=== PATIENT | female | born 1935 | race Caucasian/White ===

== ENCOUNTER → 2017-10-17 | Outpatient (CLI) | payer MEDICARE ==
--- NOTE | 2017-10-17 16:51 | BD ---
EXAMINATION TYPE: Axial Bone Density DATE OF EXAM: 10/17/2017 COMPARISON: NONE CLINICAL HISTORY: 82-year-old female screening for osteoporosis Height: 5 FT Weight: 110 FRAX RISK QUESTIONS: RISK FACTORS Active: YES Postmenopausal woman: AGE 53 Take estrogen and/or progesterone medications: TOOK HRT FROM AGE [age] How long: NONE NOW Lost more than 2 inches in height since high school: YES MEDICATIONS: Additional Medications: ATENOLOL, Additional History: EXAM MEASUREMENTS: Bone mineral densitometry was performed using the [employer] System. Bone mineral density as measured about the Lumbar spine is: ----- L1-L4(G/cm2): 1.133 T Score Values are as follows: ----- L2: -1.1 ----- L3: 0.5 ----- L4: 0.0 ----- L1-L4: -0.4 Bone mineral density has: DECREASED -3.3 % since study of: 2015 Bone mineral density about the R hip (g/cm2): 0.705 Bone mineral density about the L hip (g/cm2): 0.714 T Score values are as follows: -----R Neck: -2.4 -----L Neck: -2.3 -----R Total: -1.9 -----L Total: -1.9 Bone mineral density has: DECREASED -5.8 % since study of: 2015 IMPRESSION: Osteopenia (T Score between -2.5 and -1). There is slightly increased risk of fracture and the patient may be considered for treatment. Re-Screen 2-5 years. NOTE: T-SCORE=SD OF THE YOUNG ADULT MEAN.
--- NOTE | 2017-10-18 13:53 | MM ---
Reason for exam: screening (asymptomatic). Last mammogram was performed 2 years ago. History: Patient is postmenopausal and is nulliparous. Family history of breast cancer in paternal aunt at age 70. Took estrogen for 24 years beginning at age 53. Took progesterone for 24 years beginning at age 53. Physical Findings: A clinical breast exam by your physician is recommended on an annual basis and results should be correlated with mammographic findings. MG 3D Screening Mammo W/Cad Bilateral CC and MLO view(s) were taken. Prior study comparison: October 07, 2015, bilateral MG 3d screening mammo w/cad. February 08, 2014, bilateral MG screening mammo w CAD. The breast tissue is heterogeneously dense. This may lower the sensitivity of mammography. There is no discrete abnormality. No significant changes when compared with prior studies. ASSESSMENT: Negative, BI-RAD 1 RECOMMENDATION: Routine screening mammogram of both breasts in 1 year.
== END | disposition home or self-care (01) ==
LOC: RADMAMWWP 08:48
PROVIDERS: ATTEND Internal Medicine
DX: Z12.31 Encounter for screening mammogram for malignant neoplasm of breast (principal); M85.80 Other specified disorders of bone density and structure, unspecified site
CPT/HCPCS: 77063; 77067; 77080

== ENCOUNTER 2019-10-28 07:32 | Emergency (ER) | payer MEDICARE ==
[2019-10-28 07:41] VITALS: BP 175/91; PULSE 70; RESP 18; TEMP 98.6
[2019-10-28] MEDS ORDERED: LIDOCAINE 1% INJ 10MG/ML (20 ML MDV) SQ ONE (07:54)
[2019-10-28] MEDS ORDERED: DIPH,PERTUS(ACELL)TETVAC-LF 0.5 ML VIAL IM ONE (07:54)
--- NOTE | 2019-10-28 07:54 | ED ---
General Adult HPI - General Chief complaint: Head Injury Stated complaint: Fall Time Seen by Provider: 10/28/19 07:35 Source: patient, RN notes reviewed, old records reviewed Mode of arrival: wheelchair Limitations: physical limitation - History of Present Illness Initial comments: This is an 84-year-old female who presents emergency Department with a l aceration to the side of her face on the left. Patient states last night about 1:00 morning she opened the door blue she herself in the head she did not lose consciousness. Patient states she has no bony tenderness. Patient denies any headache. Patient denies neck pain. Patient states she didn't even fall per patient states it bled quite heavily but she put a towel on it and put a towel over pills of the patella but did not seek and when she woke up this morning she noted that it was quite large so she decided come to the emergency department. Patient currently has no complaint of that she has a laceration on her head. Patient states she's not up-to-date on her tetanus. Patient denies any other injury. Patient states she was not intoxicated at this time. - Related Data Allergies Allergy/AdvReac Type Severity Reaction Status Date / Time Sulfa (Sulfonamide Allergy Unknown Verified 10/28/19 07:41 Antibiotics) Review of Systems ROS Statement: Those systems with pertinent positive or pertinent negative responses have been documented in the HPI. ROS Other: All systems not noted in ROS Statement are negative. Past Medical History Past Medical History: Hypertension Additional Past Medical History / Comment(s): cataracts History of Any Multi-Drug Resistant Organisms: None Reported Past Surgical History: No Surgical Hx Reported Past Psychological History: No Psychological Hx Reported Smoking Status: Never smoker Past Alcohol Use History: Occasional Past Drug Use History: None Reported General Exam - General Exam Comments Initial Comments: GENERAL Patient is well-developed and well-nourished. Patient is in mild distress. EYES Patient's pupils are equal and round. Extraocular motion is intact SKIN Patient has a 3 and half centimeter laceration to the left side of her face just just above the eye and lateral to the forehead. NEURO The patient is alert and oriented 3 PYSCH Patient has normal interpersonal interactions. MUSCULOSKELETAL All 4 times and full range of motion Limitations: physical limitation Course Vital Signs 10/28/19 07:36 Temperature 98.6 F Pulse Rate 70 Respiratory 18 Rate Blood Pressure 175/91 O2 Sat by Pulse 96 Oximetry Procedures - Laceration Laceration #1 Consent Obtained: verbal consent Indication: laceration Site: face Description: linear Anesthetic Used: lidocaine 1% Anesthesia Technique: local infiltration Pre-repair: wound explored Size of Sutures: 5-0 Number of Sutures: 7 Technique: simple, interrupted Complications: pain, bleeding Patient Tolerated Procedure: well Disposition Clinical Impression: Facial laceration Disposition: HOME SELF-CARE Condition: Good Instructions (If sedation given, give patient instructions): Laceration (ED) Additional Instructions: Patient should have sutures removed in 5 days. Is patient prescribed a controlled substance at d/c from ED?: No Referrals: Olayinka Herrmann MD [Primary Care Provider] - 1-2 days Time of Disposition: 08:18
== END 2019-10-28 08:27 | disposition home or self-care (01) ==
LOC: EC 07:32
DX: S01.81XA Laceration without foreign body of other part of head, initial encounter (principal); Z88.2 Allergy status to sulfonamides; Z23 Encounter for immunization; W22.8XXA Striking against or struck by other objects, initial encounter
CPT/HCPCS: 90471; 99283; 12013; 90715; J2001

== ENCOUNTER → 2020-08-06 | Outpatient (CLI) | payer MEDICARE ==
--- NOTE | 2020-08-06 10:00 | US ---
EXAMINATION TYPE: US thyroid st tissue head/neck DATE OF EXAM: 08/06/2020 COMPARISON: NONE CLINICAL HISTORY: E03.9 Hypothyroidism. weight loss GLAND SIZE: Right Lobe: 4.1 x 1.5 x 1.5 cm Overall Parenchyma: heterogenous Left Lobe: 4.0 x 1.3 x 1.2 cm Overall Parenchyma: heterogeneous Isthmus Thickness: 0.3 cm NODULES RIGHT: # of nodules measured on right: 1 1. 0.7 X 0.5 x 0.3 cm, lower mid, solid or almost completely solid, isoechoic nodule, which is wide r than tall, with ill-defined margins, without echogenic foci. Very Subtle Prior size: No previous LEFT: # of nodules measured on left: 1 1. 0.4 X 0.4 x 0.3 cm, upper mid, cystic or almost completely cystic, anechoic nodule, which is gage ler than wide, with smooth margins, without echogenic foci. Prior size: No previous ISTHMUS: # of nodules measured in the isthmus: 0 Bilateral neck scanned, no evidence of lymphadenopathy. IMPRESSION: Subcentimeter nodularity is nonspecific. 2017 ACR TI-RADS LEVEL: *Highest TI-RADS level nodule reported
--- NOTE | 2020-08-08 04:28 | NM ---
EXAMINATION TYPE: NM thyroid image w uptake DATE OF EXAM: 08/07/2020 COMPARISON: NONE HISTORY: Hypothyroidism TECHNIQUE: Thyroid iodine uptake is calculated and images performed after the oral administration of 306 uCi 1-123 Capsule. FINDINGS: There is normal distribution of activity throughout the gland. The 4 hour iodine uptake is calculated at 20.6% (normal range 8-14%). The 24-hour iodine uptake is calculated at 49.8% (normal r joanne 15-35%). The images show uniform activity wo of focal thyroid abnormality. IMPRESSION: There is increased uptake suggestive of hyperthyroidism. No focal thyroid mass.
== END | disposition home or self-care (01) ==
LOC: RADUSWWP 09:06
PROVIDERS: ATTEND Internal Medicine
DX: E03.9 Hypothyroidism, unspecified (principal)
CPT/HCPCS: 76536; 78014; A9516

== ENCOUNTER → 2021-07-20 | Outpatient (CLI) | payer MEDICARE ==
--- NOTE | 2021-07-20 15:57 | BD ---
EXAMINATION TYPE: Bone Density DATE OF EXAM: 07/20/2021 COMPARISON: 10/17/2017 CLINICAL HISTORY: 85 years year old Female. ICD-10 CODE: M81.0 age-related osteroposis without curre nt path fx Height: 59.5 IN Weight: 104 LBS FRAX RISK QUESTIONS: Secondary Osteoporosis: 2. Hyperthyroidism: YES 3. Menopause before 45: AGE 30 RISK FACTORS HISTORY OF: Active: YES Postmenopausal woman: AGE 30 Take estrogen and/or progesterone medications: NOT NOW How long: TOOK FOR 7 YEARS MEDICATIONS: Additional Medications: HIGH BLOOD PRESSURE MEDS, CHOLESTEROL MEDS EXAM MEASUREMENTS: Bone mineral densitometry was performed using the [employer] System. Bone mineral density as measured about the Lumbar spine is: ----- L1-L4(G/cm2): 1.088 T Score Values are as follows: ----- L1: -1.7 ----- L2: -1.3 ----- L3: 0.1 ----- L4: -0.5 ----- L1-L4: -0.8 Bone mineral density has: Decreased -3.9% since study of: 10/17/2017 Bone mineral density about the R hip (g/cm2): 0.673 Bone mineral density about the L hip (g/cm2): 0.646 T Score values are as follows: -----R Neck: -2.6 -----L Neck: -2.8 -----R Total: -2.2 -----L Total: -2.5 Bone mineral density has: Decreased -7.5% since study of: 10/17/2017 FRAX%s: The graph provided illustrates a 18.2 chance for a major osteoporotic fx and a 7.4 chance for the hips probability for fx in 10 years time. IMPRESSION: Osteoporosis (T Score less than -2.5). There is increased fracture risk and therapy is usually indicated based on age. Re-Screen 1-2 years. NOTE: T-SCORE=SD OF THE YOUNG ADULT MEAN.
--- NOTE | 2021-07-21 15:05 | MM ---
Reason for exam: screening (asymptomatic). Last mammogram was performed 3 years and 9 months ago. History: Patient is postmenopausal and is nulliparous. Family history of breast cancer in paternal aunt at age 70. Took estrogen for 24 years beginning at age 53. Took progesterone for 24 years beginning at age 53. Physical Findings: A clinical breast exam by your physician is recommended on an annual basis and results should be correlated with mammographic findings. MG 3D Screening Mammo W/Cad Bilateral CC, MLO, and XCCL view(s) were taken. Prior study comparison: October 17, 2017, bilateral MG 3d screening mammo w/cad. October 07, 2015, bilateral MG 3d screening mammo w/cad. The breast tissue is extremely dense which could obscure a lesion on mammography. There are benign appearing vascular calcifications bilaterally. Focal asymmetry 10mm middle posterior depth left medial aspect on CC view only. ASSESSMENT: Incomplete: need additional imaging evaluation, BI-RAD 0 RECOMMENDATION: Special view mammogram and ultrasound of the left breast. [facility] will attempt to contact patient to return for supplemental views and ultrasound.
== END | disposition home or self-care (01) ==
LOC: RADMAMWWP 12:33
PROVIDERS: ATTEND Internal Medicine
DX: Z12.31 Encounter for screening mammogram for malignant neoplasm of breast (principal); M81.0 Age-related osteoporosis without current pathological fracture; Z78.0 Asymptomatic menopausal state; Z80.3 Family history of malignant neoplasm of breast
CPT/HCPCS: 77063; 77067; 77080

== ENCOUNTER → 2021-09-30 | Outpatient (CLI) | payer MEDICARE ==
[~2021-09-30] MED LIST: SODIUM CHLORIDE 0.9% 500 ML 500 ML in EMPTY BAG 1 BAG IV PRN; ZOLEDRONIC ACID 5 MG in SODIUM CHLORIDE 0.9% 100 ML IV NR
[2021-09-30 11:17] VITALS: PULSE 58; RESP 16; TEMP 97.6
[2021-09-30 11:47] VITALS: BP 199/71
== END ==
LOC: PROCWHC3 10:51
PROVIDERS: ATTEND Internal Medicine
DX: M81.0 Age-related osteoporosis without current pathological fracture (principal); Z88.2 Allergy status to sulfonamides
CPT/HCPCS: 96365; J3489

== ENCOUNTER → 2022-09-16 | Outpatient (CLI) | payer MEDICARE ==
[2022-09-16 10:44] LABS: African American GFR (CKD) 72 (>60 ml/min/1.73 sqM); Blood Urea Nitrogen 22 mg/dL (7-17); Non-African American GFR(CKD) 62 (>60 ml/min/1.73 sqM)
--- NOTE | 2022-09-16 11:53 | CT ---
EXAMINATION TYPE: CT angio chest DATE OF EXAM: 09/16/2022 11:37 AM COMPARISON: None HISTORY: Ascending aortic aneurysm. CT DLP: 268 mGycm Automated exposure control for dose reduction was used. CONTRAST: CTA scan of the thorax is performed without and with IV Contrast, patient injected with 100ml mL of I sovue 370, pulmonary embolism protocol. . FINDINGS: LUNGS: The lungs are grossly clear, there is no concerning parenchymal mass or nodule identified. T here is no pleural effusion or pneumothorax seen. The tracheobronchial tree is patent. Linear 3 mm d ensity right lung apex likely is benign. Additional 2 mm subpleural nodule image 20 left upper lobe a nteriorly. Mild centrilobular emphysematous changes. Subsegmental changes involving both lung bases m ost basilar atelectasis or scarring. Very mild basilar bronchiectasis. MEDIASTINUM: There is satisfactory enhancement of the pulmonary artery and its branches, there is no CT evidence for pulmonary embolism. There are no greater than 1 cm hilar or mediastinal lymph nodes. The heart is enlarged and there is a trace of pericardial fluid. The calcification in the region of the aortic valve is seen there is no significant coronary artery calcification. AORTA: Ascending aorta demonstrates mild aneurysmal dilation measuring 4.1 x 4.1 cm. There is mild atheroscl erotic plaque. There is no diagnostic evidence of dissection. There is an aberrant right subclavian artery. OTHER: Multilevel severe hypertrophic and degenerative disc disease with scoliosis. Small hiatal her nany. IMPRESSION: 1. There is a 4.1 x 4.1 cm ascending aortic aneurysm. 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 This can be associated with a vascular ring and dysphasia. Correla te clinically. 2. Sub-5 mm pulmonary nodules too small to characterize but have a benign appearance. No additional w orkup recommended.
== END | disposition home or self-care (01) ==
LOC: RADCTMAIN 10:05
PROVIDERS: ATTEND Internal Medicine
DX: I71.21 Aneurysm of the ascending aorta, without rupture (principal); Q27.8 Other specified congenital malformations of peripheral vascular system; R91.8 Other nonspecific abnormal finding of lung field
CPT/HCPCS: 82565; 84520; 71275; 36415; Q9967

== ENCOUNTER → 2022-09-21 | Outpatient (CLI) | payer MEDICARE ==
--- NOTE | 2022-09-22 08:51 | MM ---
Reason for Exam: Screening (asymptomatic). Last mammogram was performed 1 year(s) and 2 month(s) ago. Patient History: Menarche at age 12. Patient has no children. Postmenopausal. Estrogen for 24 years from age 53 until age 77. Progesterone for 24 years from age 53 until age 77. Paternal aunt had breast cancer, age 70. Prior Study Comparison: 10/07/2015 Bilateral Screening Mammogram, [facility]. 10/17/2017 Bilateral Screening Mammogram, [facility]. 07/20/2021 Bilateral Screening Mammogram, [facility]. Tissue Density: The breast tissue is heterogeneously dense. This may lower the sensitivity of mammography. Findings: Analyzed By CAD. There is no suspicious group of microcalcifications or new suspicious mass in either breast. Overall Assessment: Negative, BI-RAD 1 Management: Screening Mammogram of both breasts in [address] [facility] will attempt to contact patient to return for supplemental views and ultrasound if indicated. Patient should continue monthly self-breast exams. A clinical breast exam by your physician is recommended on an annual basis. This exam should not preclude additional follow-up of suspicious palpable abnormalities. Note on Renee scores and lifetime risk: 1. A Renee score greater than 3% is considered moderate risk. If this is the case, consider specialist referral to assess eligibility for a risk reducing agent. 2. If overall lifetime risk for the development of breast cancer is 20% or higher, the patient may qualify for future screening with alternating mammogram and breast MRI. Electronically signed and approved by: Jin Weir DO
== END | disposition home or self-care (01) ==
LOC: RADMAMWWP 09:07
PROVIDERS: ATTEND Internal Medicine
DX: Z12.31 Encounter for screening mammogram for malignant neoplasm of breast (principal); Z78.0 Asymptomatic menopausal state; Z80.3 Family history of malignant neoplasm of breast
CPT/HCPCS: 77063; 77067

== ENCOUNTER → 2024-06-04 | Outpatient (CLI) | payer MEDICARE ==
--- NOTE | 2024-06-04 15:53 | US ---
EXAMINATION TYPE: US venous doppler duplex LE BI DATE OF EXAM: 06/04/2024 3:25 PM COMPARISON: NONE CLINICAL INDICATION: Female, 88 years old with history of R600 EDEMA OF RIGHT LOWER LEG; , Pain x few weeks; Patient denies any other signs, symptoms, or relevant history TECHNIQUE: The lower extremity deep venous system is examined utilizing real time linear array sonog romie with graded compression, color doppler sonography, and spectral doppler. SIDE PERFORMED: Bilateral FINDINGS: VESSELS IMAGED: Common Femoral Vein Deep Femoral Vein Greater Saphenous Vein * Femoral Vein Popliteal Vein Small Saphenous Vein * Proximal Calf Veins (* superficial vessels) Right Leg: Negative for DVT, Color Doppler imaging shows patency of the vessels. Spectral waveforms are within normal limits. Left Leg: Negative for DVT, Color Doppler imaging shows patency of the vessels. Spectral waveforms a re within normal limits. IMPRESSION: No ultrasound evidence for deep venous thrombosis. [facility], , 06/04/2024 3:51 PM
--- NOTE | 2024-06-04 15:54 | US ---
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 TECHNIQUE: Grayscale, color Doppler and spectral Doppler evaluation of the bilateral carotid systems and vertebral arteries. Indirect Doppler criteria was utilized. FINDINGS: EXAM MEASUREMENTS: RIGHT: Peak Systolic Velocity (PSV) cm/sec ----- Right CCA: 60 ----- Right ICA: 72 ----- Right ECA: 59 ICA/CCA ratio: 1.2 RIGHT: End Diastole cm/sec ----- Right CCA: 10 ----- Right ICA: 21 ----- Right ECA: 12 LEFT: Peak Systolic Velocity (PSV) cm/sec ----- Left CCA: 58 ----- Left ICA: 55 ----- Left ECA: 37 ICA/CCA ratio: 0.9 LEFT: End Diastole cm/sec ----- Left CCA: 10 ----- Left ICA: 14 ----- Left ECA: 11 VERTEBRALS (direction of flow): Right Vertebral: Antegrade Left Vertebral: Antegrade Rhythm: Arrhythmia; Image 18 ENVIRONMENT ARTIST NOTES: No intimal thickening or elevated velocities seen, calcified plaque seen at left C CA/ECA bulb Color Doppler imaging shows patency with blood flow throughout the carotid artery. Spectral waveforms are within normal limits. IMPRESSION: Right: No hemodynamically significant stenosis. Left: No hemodynamically significant stenosis. Criteria for Assigning % of Stenosis / Diameter reduction (Estimation based on the indirect measurements of the internal carotid artery velocities (ICA PSV). 1. Normal (no stenosis)=ICA PSV < 125 cm/s: ratio < 2.0: ICA EDV<40 cm/s. 2. Less than 50% stenosis=ICA PSV < 125 cm/s: ratio < 2.0: ICA EDV<40 cm/s. 3. 50 to 69% stenosis=ICA PSV of 125 to 230 cm/s: ration 2.0 ? 4.0: ICA EDV 40-100 cm/s. 4. Greater than 70% stenosis to near occlusion= ICA PSV > 230 cm/s: ratio > 4.0: ICA EDV > 100 cm/s. 5. Near occlusion= ICA PSV velocities may be low or undetectable: variable ratio and ICA EDV. 6. Total occlusion=unable to detect flow. [facility], , 06/04/2024 3:52 PM
--- NOTE | 2024-06-04 16:52 | CA ---
Transthoracic Echo Report Name: Concepcion Chavarria Age: 88 Gender: F : 1935 Exam Date: 06/04/2024 14:20 Exam Location: [place] [facility] Ht (in): 61 Wt (lb): 110 Ordering Physician: Renetta Hayes MD Attending/Referring Phys: Renetta Hayes MD Enrollment Services Vice President Page Barnes, [facility] Procedure CPT: Indications: `I35.1 NONRHEUMATIC AORTIC VALVE INSUFFICIENCY Cardiac Hx: Technical Quality: Good Contrast 1: Total Dose (mL): Contrast 2: Total Dose (mL): MEASUREMENTS (Male / Female) Normal Values 2D ECHO LV Diastolic Diameter PLAX 4.8 cm 4.2 - 5.9 / 3.9 - 5.3 cm LV Systolic Diameter PLAX 2.8 cm IVS Diastolic Thickness 1.0 cm 0.6 - 1.0 / 0.6 - 0.9 cm LVPW Diastolic Thickness 1.0 cm 0.6 - 1.0 / 0.6 - 0.9 cm LV Relative Wall Thickness 0.4 RV Internal Dim ED PLAX 2.7 cm LA Systolic Diameter LX 3.7 cm 3.0 - 4.0 / 2.7 - 3.8 cm LV Diastolic Volume MOD 4C 84.8 cm??? LV Systolic Volume MOD 4C 43.8 cm??? LV Ejection Fraction MOD 4C 48.4 % LV Diastolic Length 4C 7.4 cm LV Systolic Length 4C 6.0 cm LV Diastolic Volume MOD 2C 96.0 cm??? LV Systolic Volume MOD 2C 47.9 cm??? LV Ejection Fraction MOD 2C 50.1 % LV Diastolic Length 2C 7.1 cm LV Systolic Length 2C 5.8 cm LA Volume 45.1 cm??? 18 - 58 / 22 - 52 cm??? LA Volume Index 30.7 cm???/m??? 16 - 28 cm???/m??? M-MODE Aortic Root Diameter MM 3.2 cm DOPPLER AV Peak Velocity 161.9 cm/s AV Peak Gradient 10.5 mmHg AI Peak Velocity 390.3 cm/s AI Peak Gradient 60.9 mmHg AI Pressure Half Time 670.5 ms MV Area PHT 2.3 cm??? Mitral E Point Velocity 90.1 cm/s Mitral A Point Velocity 126.8 cm/s Mitral E to A Ratio 0.7 MV Deceleration Time 329.9 ms TR Peak Velocity 278.1 cm/s TR Peak Gradient 30.9 mmHg Right Ventricular Systolic Press 35.2 mmHg FINDINGS Left Ventricle Left ventricular ejection fraction is estimated at 50-55 %. Mildly increased septal wall thickness. Left ventricular cavity size normal. No obvious regional wall motion abnormalities. Right Ventricle Normal right ventricular size and function. Mild pulmonary hypertension. Right Atrium Normal right atrial size. No right atrial thrombus or mass seen. Left Atrium Mildly increased left atrial volume. No left atrial thrombus or mass present. Mitral Valve Structurally normal mitral valve. No evidence for mitral valve prolapse. No mitral stenosis. Trace mitral regurgitation. Aortic Valve Trileaflet aortic valve. Thickened aortic valve without stenosis. Mild aortic regurgitation. Tricuspid Valve Structurally normal tricuspid valve. Mild tricuspid regurgitation. Pulmonic Valve Structurally normal pulmonic valve. Trace pulmonic regurgitation. Pericardium No pericardial effusion. Aorta Normal size aortic root and proximal ascending aorta. CONCLUSIONS Left ventricular ejection fraction 50-55% RVSP 35 Trace mitral regurgitation Mild aortic regurgitation Mild tricuspid regurgitation No pericardial effusion Previewed by: Dr. Robin Ye DO (Electronically Signed) Final Date: 04 June 2024 16:51
--- NOTE | 2024-06-05 08:38 | BD ---
EXAMINATION TYPE: Axial Bone Density DATE OF EXAM: 06/04/2024 CLINICAL HISTORY: 88 years old Female. ICD-10 CODE: M810 AGRE RELATED OSTEO , Additional History: Height: 60" Weight: 118lbs FRAX RISK QUESTIONS: Alcohol (3 or more units per day): No Family History (Parent hip fracture): No Glucocorticoids (More than 3mos): No (Ex: prednisone, prednisolone, methylprednisolone, dexamethasone, and hydrocortisone). History of Fracture in Adulthood: No Secondary Osteoporosis: 1. Type 1 Diabetes: No 2. Hyperthyroidism: No 3. Menopause before 45: No 4. Malnutrition: No 5. Chronic liver disease: No Rheumatoid Arthritis: No Current Tobacco Use: No RISK FACTORS HISTORY OF: Hip Fracture (Right/Left): No Spine Fracture: No History of Wrist Fracture: No Surgery to Spine/Hip(right/left)/Wrist (right/left): No MEDICATIONS: Thyroid Medications: No Osteoporosis Medications: No EXAM MEASUREMENTS: Bone mineral densitometry was performed using the [employer] System. Bone mineral density as measured about the Lumbar spine is: ----- L1-L4(G/cm2): 1.114 T Score Values are as follows: ----- L1: -1.8 ----- L2: -1.2 ----- L3: 0.3 ----- L4: 0.1 ----- L1-L4: -0.5 Z Score Values are as follows: ----- L1: 0.6 ----- L2: 1.1 ----- L3: 2.7 ----- L4: 2.4 ----- L1-L4: 1.8 Bone mineral density has: increased 2.4% since study of: 07/20/2021 Bone mineral density about the R hip (g/cm2): 0.730 Bone mineral density about the L hip (g/cm2): 0.807 T Score values are as follows: -----R Neck: -2.4 -----L Neck: -2.1 -----R Total: -2.2 -----L Total: -1.6 Z Score values are as follows: -----R Neck: 0.4 -----L Neck: 0.7 -----R Total: 0.5 -----L Total: 1.2 Bone mineral density has: increased 7.6% since study of: 07/20/2021 FRAX%s: The graph provided illustrates a 14.6% chance for a major osteoporotic fx and a 5.4% chance f or the hips probability for fx in 10 years time. IMPRESSION: Osteopenia (T Score between -2.5 and -1). There is slightly increased risk of fracture and the patient may be considered for treatment. Re-Screen 2-5 years. NOTE: T-SCORE=SD OF THE YOUNG ADULT MEAN. [facility], , 06/05/2024 8:35 AM
== END | disposition home or self-care (01) ==
LOC: RADECHMAIN 14:07
PROVIDERS: ATTEND Internal Medicine
DX: I35.1 Nonrheumatic aortic (valve) insufficiency (principal); I65.23 Occlusion and stenosis of bilateral carotid arteries; M81.0 Age-related osteoporosis without current pathological fracture; R60.0 Localized edema; M85.89 Other specified disorders of bone density and structure, multiple sites; I08.3 Combined rheumatic disorders of mitral, aortic and tricuspid valves; I37.1 Nonrheumatic pulmonary valve insufficiency
CPT/HCPCS: 77080; 93306; 93880; 93970